=== PATIENT | male | born 1955 | race Caucasian/White ===

== ENCOUNTER 2017-12-20 06:04 | Day surgery (SDC) | payer BC, OTHER ==
--- NOTE | 2017-12-19 16:24 | HP ---
- Patient Scheduled date of Surgery: 12/20/17 Scheduled Surgical Procedure: Phacoemulsification and cataract extraction with PCIOL Affected Eye: Left Chief Complaint (Indication for surgery): Decreased vision affecting ADLs - Ocular History Other Eye History: Other (RM and OHTN) Eye Medications: alphagan 0/2, vigamox 0/3 Previous Eye Surgery: none - Medical History Illnesses: Hypertension, Hypercholesterolemia, Other (NIDDM, GERD) Current Medications: Ambulatory Orders Fenofibrate Nanocrystallized [Tricor] 160 mg PO tablet 05/21/14 Metformin HCl 1,000 mg PO BID #14 tablet 05/21/14 Omeprazole 40 mg PO capsule 05/21/14 Allergies/Adverse Reactions: Allergies Allergy/AdvReac Type Severity Reaction Status Date / Time No Known Allergies Allergy Unverified 05/21/14 12:01 Ocular Examination - Best Corrected Visual Acuity Distance: Right eye: 20/25 Distance: Left eye: 20/50 - External/Slit Lamp Examination Abnormalities: pingeuculum - Intraocular Pressure Intraocular Pressure - Right eye: 19 Intraocular Pressure-Left eye: 21 - Lens Lens: 2+ NS 1+ cortical - Vitreous/Retina Vitreous/Retina: c:d 0.2 m/v/p wnl - Special Examination M - Right eye: +1.00-2.00 x 090 M - Left eye: +1.25-2.50 x 090 K - Right eye: 44.75/45.75 x 175 K - Left eye: 44.75/46 x 105 AL - Right eye: 22.87 AL - Left eye: 22.91 IOL ba.0 AUOOTO IOL sulcus: +20.5 MN60 AC IOL AC: +17.0 d MTA4uo - Impression Impression: Cataract Left Eye - Plan Plan: Phacoemulsification and cataract extraction - IOL Left eye Post-hospital care will be provided in office on: 12/21/17
[2017-12-19 16:46] VITALS: BMI 33.7
[~2017-12-20 06:04] MED LIST: TOBRAMYCIN/DEXAMETHASONE OPHTH. OINTMENT 1 TUBE OS ONE
[2017-12-20 06:26] VITALS: TEMP 98.6
[2017-12-20] MEDS ORDERED: FLURBIPROFEN 0.03% OPHTH SOLN 2.5 ML BOTTLE ONE (06:32)
[2017-12-20] MEDS ORDERED: CIPROFLOXACIN 0.3% EYE DROPS 5 ML BOTTLE ONE (06:32)
[2017-12-20] MEDS ORDERED: PHENYLEPHRINE 2.5% OPHTH SOLN 15 ML BOTTLE ONE (06:33)
[2017-12-20] MEDS ORDERED: TROPICAMIDE 1% OPHTH SOLN 15 ML BOTTLE ONE (06:33)
[2017-12-20] MEDS ORDERED: ACETAMINOPHEN 325 MG TABLET (FP) PO PRN (06:45)
[2017-12-20] MEDS ORDERED: KETOROLAC TROMETHAMINE 0.5% 5 ML BOTTLE OPTHALMIC OP SCH (06:45)
[2017-12-20] MEDS ORDERED: TROPICAMIDE 1% OPHTH SOLN 15 ML BOTTLE OP SCH (06:45)
[2017-12-20] MEDS ORDERED: CIPROFLOXACIN HCL 0.3% OPHTH 2.5ML BOTTLE OP SCH (06:45)
[2017-12-20] MEDS ORDERED: PHENYLEPHRINE 2.5% OPHTH SOLN 15 ML BOTTLE OP SCH (06:45)
[2017-12-20] MEDS ORDERED: FLURBIPROFEN 0.03% OPHTH SOLN 2.5 ML BOTTLE OS ONE ×3 (06:50→07:10)
[2017-12-20] MEDS ORDERED: TROPICAMIDE 1% OPHTH SOLN 15 ML BOTTLE OS ONE ×3 (06:50→07:10)
[2017-12-20] MEDS ORDERED: CIPROFLOXACIN HCL 0.3% OPHTH 2.5ML BOTTLE OS ONE ×3 (06:50→07:10)
[2017-12-20] MEDS ORDERED: PHENYLEPHRINE 2.5% OPHTH SOLN 15 ML BOTTLE OS ONE ×3 (06:50→07:10)
[2017-12-20] MEDS ORDERED: CHONDROITIN SU A/HYALUR SOD 1 KIT ONE (07:05)
[2017-12-20] MEDS ORDERED: LIDOCAINE HCL/PF 1% SDV 5ML VIAL ONE (07:13)
[2017-12-20] MEDS ORDERED: LIDOCAINE HCL 2% JELLY (5 ML/TUBE) ONE (07:13)
[2017-12-20] MEDS ORDERED: EPINEPHrine/PF 1 MG/1 ML (1:1,000) AMPULE ONE ×2 (07:13→07:55)
[2017-12-20] MEDS ORDERED: TOBRAMYCIN/DEXAMETHASONE OPHTH. OINTMENT 1 TUBE ONE (07:13)
[2017-12-20] MEDS ORDERED: POVIDONE-IODINE 5% OPHTHALMIC PREP 30 ML SOLUTION ONE (07:14)
[2017-12-20] MEDS ORDERED: BSS (NA/CA/MG/K) BALANCED SALT SOLUTION OPHTH SOLN 15 ML BOTTLE ONE (07:14)
--- NOTE | 2017-12-20 07:14 | HP ---
History & Physical Update - History History: No Change - Physical Physical: No Change - Assessment Assessment: No Change - Plan Plan: No Change (Reviewed Dr. Moya's H and P from 12/18/17 no changes)
[2017-12-20] MEDS ORDERED: MIDAZOLAM HCL 2 MG/2 ML SINGLE DOSE VIAL ONE (07:39)
[2017-12-20] MEDS ORDERED: LIDOCAINE HCL 2% JELLY (5 ML/TUBE) TP ONE (07:39)
[2017-12-20] MEDS ORDERED: POVIDONE-IODINE 5% OPHTHALMIC PREP 30 ML SOLUTION OS ONE (07:41)
[2017-12-20] MEDS ORDERED: BSS (NA/CA/MG/K) BALANCED SALT SOLUTION OPHTH SOLN 15 ML BOTTLE OS ONE (07:50)
[2017-12-20] MEDS ORDERED: LIDOCAINE HCL 1% PRESERVATIVE FREE - 30ML VIAL IO ONE (07:50)
[2017-12-20] MEDS ORDERED: CHONDROITIN SU A/HYALUR SOD 1 KIT IO ONE (07:50)
[2017-12-20] MEDS ORDERED: EPINEPHrine/PF 1 MG/1 ML (1:1,000) AMPULE SQ ONE (07:55)
[2017-12-20] MEDS ORDERED: TOBRAMYCIN/DEXAMETHASONE OPHTH. OINTMENT 1 TUBE OS ONE (08:10)
--- NOTE | 2017-12-20 08:20 | OP ---
Ophthalmology Operative Note Pre-Operative Diagnosis: Cataract Affected Eye: Left Operation: Phacoemulsification and cataract extraction with PCIOL Findings: NS cataract Post-Operative Diagnosis: Same as Pre-op Patient Escort: None Anesthesiologist: Ifrah Vasquez MD Anesthesia: Topical Specimens Removed: none Estimated blood loss: none Drains & Tubes with Location: none Operative Report Dictated: Yes
--- NOTE | 2017-12-20 08:47 | OP ---
DATE OF OPERATION: 12/20/2017 PREOPERATIVE DIAGNOSIS: Nuclear sclerotic cataract, left eye. POSTOPERATIVE DIAGNOSIS: Nuclear sclerotic cataract, left eye. PROCEDURE: Phacoemulsification and cataract extraction with insertion of posterior chamber intraocular lens, left eye. SURGEON: Francisca Reynolds MD DIRECT CARE SPECIALIST: None. ANESTHESIA: Topical. ANESTHESIOLOGIST: fIrah Vasquez MD OPERATIVE PROCEDURE: Following satisfactory intravenous sedation, the patient received 2% lidocaine jelly drops and was then prepped and draped in the usual sterile fashion so as to expose only the left eye. Ophthalmic Betadine was instilled into the inferior fornix, and the lashes were taped out of the surgical field. An eyelid speculum was placed into the left eye. A paracentesis was made in inferior clear cornea at the limbus. Next, 0.5 mL of nonpreserved lidocaine 1% was injected into the anterior chamber. Viscoelastic material was instilled into the anterior chamber via the paracentesis. A 2.4-mm keratome was then used to create the main incision in temporal clear cornea at the limbus. A continuous curvilinear capsulorrhexis was performed using a cystotome and Utrata forceps. Hydrodissection of the lens cortex was performed using BSS on a cannula until the nucleus was noted to be freely rotating. The phacoemulsification tip was inserted via the main wound and used to sculpt 2 perpendicular grooves into the lens nucleus. The nucleus was cracked into 4 quadrants. Each quadrant was lifted out of the capsule into the iris plane and individually phacoemulsified. The remaining cortical material was then aspirated using the irrigation and aspiration port. The capsular bag was inflated using Provisc, and a preloaded AcrySof lens model [id number], power +21.0 diopters was injected into the capsular bag and centered using a Sinskey hook. The residual viscoelastic material was removed from the anterior chamber using irrigation and aspiration. The wound edges were hydrated using BSS. The wound was tested for leakage. It was found to be watertight. Therefore, TobraDex ointment was placed in the eye. The speculum was removed from the eye, and the eyelid was closed. A sterile dressing and shield were placed over the eye, and the patient was transferred to the recovery room in stable condition, told to follow up in one day. FRANCISCA REYNOLDS M.D. [id number]
[2017-12-20 09:07] VITALS: BP 129/81; PULSE 79
== END 2017-12-20 09:00 | disposition home or self-care (01) ==
LOC: JASU-SURG 06:04
PROVIDERS: ATTEND Ophthalmology
PROC: 08RK3JZ Replacement of Left Lens with Synthetic Substitute, Percutaneous Approach (ICD-10-PCS; principal; 2017-12-20 07:30)
DX: H25.12 Age-related nuclear cataract, left eye (principal)
CPT/HCPCS: 82962